=== PATIENT | female | born 1965 | race Caucasian/White ===

== ENCOUNTER 2017-05-01 16:12 | Emergency (ER) | payer MEDICAID ==
[~2017-05-01] VITALS: Ht 162.6 cm; Wt 90.7 kg
[~2017-05-01 16:12] MED LIST: FIORICET 50-301 EACH PO; PREDNISONE 20 M20 M1 PO; PROAIR HFA8.5 GM IH; SLEEPING AID; SYNTHROID200 MCG PO; ZPAK PO; [UNRECOGNIZED DRUG - REMARK]
[2017-05-01] MEDS ORDERED: SYNTHROID175 MCG PO (16:27)
[2017-05-01] MEDS ORDERED: CYMBALTA30 MG PO (16:28)
[2017-05-01 17:00] LABS: ABSOLUTE BASOPHILS 0.2 thou/uL (0.0-0.2); ABSOLUTE EOSINOPHILS 0.2 thou/uL (0.0-0.7); ABSOLUTE LYMPHOCYTES 3.7 thou/uL (0.8-5.3); ABSOLUTE MONOCYTES 0.6 thou/uL (0.0-1.2); ABSOLUTE NEUTROPHILS 5.5 thou/uL (1.6-8.1); BASOPHILS 1.6 %; EOSINOPHILS 1.8 %; HEMATOCRIT 34.1 % (37.0-47.0); LYMPHOCYTES 36.3 %; MCH 31.8 pg (26.0-34.0); MCHC 35.3 g/dL (28.0-37.0); MCV 90.1 fL (80.0-100.0); MONOCYTES 5.7 %; MPV 7.5 fl. (7.2-11.1); NUCLEATED RBCS 0 /100WBC; PLATELET COUNT* 330 thou/uL (150-400); POLYS 54.6 %; RBC 3.78 mil/uL (4.20-5.00); RDW-CV 13.8 % (10.5-14.5); WBC 10.1 thou/uL (4.0-11.0)
[2017-05-01 17:02] LABS: CALCIUM 9.8 mg/dL (8.5-10.1); POTASSIUM 3.3 mmol/L (3.5-5.1)
[2017-05-01 17:07] LABS: ALBUMIN 3.8 g/dL (3.4-5.0); TOTAL BILIRUBIN 0.4 mg/dL (<0.1-1.0); TOTAL PROTEIN 7.4 g/dL (6.4-8.2)
[2017-05-01] MEDS ORDERED: BACTRIM DS TAB1 EACH PO (18:23)
[2017-05-01] MEDS ORDERED: KEFLEX500 M1 PO (18:23)
[2017-05-01] MEDS ORDERED: HYDROCODONE-AP1 EAC6 PO (18:23)
[2017-05-01 19:04] VITALS: BP 156/120
== END 2017-05-01 19:09 | disposition home or self-care (01) ==
LOC: M.ERS 16:12
PROVIDERS: Physician Assistant
DX: L03.116 Cellulitis of left lower limb (principal); G43.909 Migraine, unspecified, not intractable, without status migrainosus; E03.9 Hypothyroidism, unspecified; Z90.710 Acquired absence of both cervix and uterus

== ENCOUNTER 2017-05-03 20:37 | Emergency (ER) | payer MEDICAID ==
[~2017-05-03] VITALS: Ht 162.6 cm; Wt 90.7 kg
[~2017-05-03 20:37] MED LIST changes: +BACTRIM DS TAB1 EACH PO; +CYMBALTA30 MG PO; +HYDROCODONE-AP1 EAC6 PO; +KEFLEX500 M1 PO; +SYNTHROID175 MCG PO
[2017-05-03 21:01] LABS: ABSOLUTE BASOPHILS 0.1 thou/uL (0.0-0.2); ABSOLUTE EOSINOPHILS 0.2 thou/uL (0.0-0.7); ABSOLUTE MONOCYTES 0.5 thou/uL (0.0-1.2); ABSOLUTE NEUTROPHILS 5.6 thou/uL (1.6-8.1); BASOPHILS 1.1 %; LYMPHOCYTES 31.8 %; MCH 31.5 pg (26.0-34.0); MCHC 34.3 g/dL (28.0-37.0); MCV 91.8 fL (80.0-100.0); MONOCYTES 5.2 %; MPV 7.2 fl. (7.2-11.1); NUCLEATED RBCS 0 /100WBC; PLATELET COUNT* 367 thou/uL (150-400); POLYS 59.9 %; RBC 4.14 mil/uL (4.20-5.00); RDW-CV 14.1 % (10.5-14.5); WBC 9.3 thou/uL (4.0-11.0)
[2017-05-03 21:05] LABS: CALCIUM 10.2 mg/dL (8.5-10.1); POTASSIUM 3.9 mmol/L (3.5-5.1)
[2017-05-03 21:10] LABS: ALBUMIN 4.3 g/dL (3.4-5.0); TOTAL BILIRUBIN 0.3 mg/dL (<0.1-1.0); TOTAL PROTEIN 8.4 g/dL (6.4-8.2)
[2017-05-03 22:58] VITALS: BP 152/105
== END 2017-05-03 22:59 | disposition home or self-care (01) ==
LOC: M.ERS 20:37
PROVIDERS: Family Medicine
DX: L03.116 Cellulitis of left lower limb (principal); G43.909 Migraine, unspecified, not intractable, without status migrainosus; E03.9 Hypothyroidism, unspecified; F17.210 Nicotine dependence, cigarettes, uncomplicated